=== PATIENT | male | born 1985 ===

== ENCOUNTER 2017-08-13 07:32 | Outpatient (CLI) | payer OTHER ==
[~2017-08-13] VITALS: Ht 152.4 cm; Wt 68.0 kg
== END 2017-08-13 07:50 | disposition home or self-care (01) ==
LOC: OFIC 805 07:32
DX: H90.72 Mixed conductive and sensorineural hearing loss, unilateral, left ear, with unrestricted hearing on the contralateral side (principal); H70.12 Chronic mastoiditis, left ear

== ENCOUNTER 2017-09-11 09:05 | Outpatient (CLI) | payer OTHER | END 2017-09-11 12:26 | disposition home or self-care (01) | LOC: TOM 09:05 | DX: H71.12 Cholesteatoma of tympanum, left ear (principal); H70.12 Chronic mastoiditis, left ear; H90.72 Mixed conductive and sensorineural hearing loss, unilateral, left ear, with unrestricted hearing on the contralateral side; H61.322 Acquired stenosis of left external ear canal secondary to inflammation and infection ==

== ENCOUNTER 2017-09-14 07:45 | Outpatient (CLI) | payer OTHER ==
[~2017-09-14] VITALS: Ht 152.4 cm; Wt 70.3 kg
== END 2017-09-14 08:00 | disposition home or self-care (01) ==
LOC: OFIC 805 07:45
DX: H90.72 Mixed conductive and sensorineural hearing loss, unilateral, left ear, with unrestricted hearing on the contralateral side (principal); H61.23 Impacted cerumen, bilateral; H70.12 Chronic mastoiditis, left ear; H71.12 Cholesteatoma of tympanum, left ear

== ENCOUNTER → 2017-10-15 13:51 | Outpatient (CLI) | payer OTHER | END | disposition home or self-care (01) | LOC: LAB 13:51 → CIR.AMB 10-26 09:01 → EDSTATUS 10-26 13:50 → CIR.AMB 10-26 17:32 | DX: H70.12 Chronic mastoiditis, left ear (principal); H72.92 Unspecified perforation of tympanic membrane, left ear; H90.72 Mixed conductive and sensorineural hearing loss, unilateral, left ear, with unrestricted hearing on the contralateral side ==

== ENCOUNTER 2018-01-08 06:46 | Outpatient (CLI) | payer OTHER | END 2018-01-08 07:10 | disposition home or self-care (01) | LOC: LAB 06:46 | DX: H70.13 Chronic mastoiditis, bilateral (principal); H72.03 Central perforation of tympanic membrane, bilateral; H71.93 Unspecified cholesteatoma, bilateral ==

== ENCOUNTER 2018-02-20 08:12 | Emergency (ER) | payer OTHER ==
[~2018-02-20] VITALS: Ht 165.1 cm; Wt 70.3 kg
[2018-02-20] MEDS ORDERED: HIBICLENS118 ML TOP (10:50)
[2018-02-20] MEDS ORDERED: DOXYCYCLINE HY100 MG PO (10:50)
== END 2018-02-20 11:20 | disposition home or self-care (01) ==
LOC: ER 08:12
DX: L02.414 Cutaneous abscess of left upper limb (principal)